=== PATIENT | female | born 1940 | race Caucasian/White ===

== ENCOUNTER 2017-03-20 17:31 | Inpatient (IN) | payer OTHER ==
[~2017-03-20] VITALS: Ht 167.6 cm; Wt 69.9 kg
[2017-03-20] MEDS ORDERED: Cefepime HCl 1 GM in NS 55 ML IV STA (17:57)
[2017-03-20 18:00] VITALS: BP 128/72
[2017-03-20] MEDS ORDERED: Cefepime 1gm vial ONE (18:01)
[2017-03-20 18:22] LABS: MEAN CORPUSCULAR HEMOGLOBIN 34.2 PG (27.0-31.0); MEAN CORPUSCULAR HGB CONC 36.6 G/DL (32.0-36.0); MEAN CORPUSCULAR VOLUME 93 FL (80-99); MEAN PLATELET VOLUME 6.1 FL (6.5-10.1); PLATELET COUNT 244 K/UL (150-450); RED CELL DISTRIBUTION WIDTH 12.2 % (11.6-14.8); WHITE BLOOD COUNT 17.5 K/UL (4.8-10.8)
[2017-03-20 18:25] LABS: BASOPHILS % (AUTO) 0.2 % (0.0-2.0); EOSINOPHILS % (AUTO) 0.8 % (0.0-3.0); LYMPHOCYTES % (AUTO) 1.4 % (20.0-45.0); MONOCYTES % (AUTO) 2.9 % (1.0-10.0); NEUTROPHILS % (AUTO) 94.7 % (45.0-75.0)
[2017-03-20 18:33] LABS: REFLEX LACTIC ACID YES OR NO YES
[2017-03-20 18:34] LABS: TROPONIN I < 0.30 ng/mL (<=0.30)
[2017-03-20 18:35] LABS: ALANINE AMINOTRANSFERASE 27 U/L (3-33); ALBUMIN/GLOBULIN RATIO 1.1 (1.0-2.7); ANION GAP 16 (5-15); ASPARTATE AMINO TRANSFERASE 41 U/L (5-40); CALCIUM 8.8 mg/dL (8.6-10.2); CARBON DIOXIDE 21 mEQ/L (20-30); CHLORIDE 95 mEQ/L (98-107); CREATININE 0.9 mg/dL (0.5-0.9); HEMOLYSIS 4; POTASSIUM 3.7 mEQ/L (3.4-4.9); SODIUM 132 mEQ/L (135-145); TOTAL PROTEIN 6.3 g/dL (6.6-8.7)
[2017-03-20 18:46] LABS: CKMB < 1.5 ng/mL (< 3.8)
[2017-03-20 18:56] LABS: APPEARANCE,URINE SLIGHTLY CLOUDY; KETONES,URINE 2+ (NEGATIVE); LEUKOCYTE ESTERASE ,URINE 3+ (NEGATIVE); NITRITE,URINE NEGATIVE (NEGATIVE); PH,URINE 5 (4.5-8.0); PROTEIN,URINE 1+ (NEGATIVE); UROBILINOGEN,URINE NORMAL MG/DL (0.0-1.0)
[2017-03-20 19:00] VITALS: BP 95/42
[2017-03-20 19:06] LABS: WBC,URINE 20-30 /HPF (0 - 2)
[2017-03-20 19:07] LABS: AMORPHOUS SEDIMENT,UR MODERATE /LPF; BACTERIA,URINE OCCASIONAL /HPF; SQUAMOUS EPITHELIAL CELL,UR OCCASIONAL /LPF (NONE/OCC)
[2017-03-20] MEDS ORDERED: POLYETHYLENE GL17 GM ORAL (19:42)
[2017-03-20] MEDS ORDERED: SINEMET 25-1001 EAC1 ORAL (19:42)
[2017-03-20] MEDS ORDERED: MOM30 ML ORAL (19:42)
[2017-03-20] MEDS ORDERED: BREO ELLIPTA 11 EACH IH (19:42)
[2017-03-20] MEDS ORDERED: IPRATROPIU0.2 MG/1 M HHN (19:42)
[2017-03-20] MEDS ORDERED: LORAZEPAM0.5 GM MC (19:42)
[2017-03-20] MEDS ORDERED: MELADOX3 MG PO (19:42)
[2017-03-20] MEDS ORDERED: ALENDRONATE SOD70 MG ORAL (19:42)
[2017-03-20] MEDS ORDERED: FOLGARD TABLET1 EAC1 PO (19:42)
[2017-03-20] MEDS ORDERED: MULTIVITAMINS1 EAC2 ORAL (19:42)
[2017-03-20] MEDS ORDERED: TRAZODONE HCL50 MG ORAL (19:42)
[2017-03-20] MEDS ORDERED: ARICEPT10 MG ORAL (19:42)
[2017-03-20] MEDS ORDERED: ASPIR 8181 MG ORAL (19:42)
[2017-03-20] MEDS ORDERED: CLOZAPINE25 MG PO (19:42)
[2017-03-20] MEDS ORDERED: BISACODYL10 M1 RC (19:42)
[2017-03-20] MEDS ORDERED: LYSINE500 MG PO (19:42)
[2017-03-20] MEDS ORDERED: TYLENOL650 MG/20. ORAL (19:42)
[2017-03-20] MEDS ORDERED: MIRTAZAPINE30 M1 ORAL (19:42)
[2017-03-20] MEDS ORDERED: GUIATUSS AC SY120 ML ORAL (19:42)
[2017-03-20] MEDS ORDERED: PROAIR HFA8.5 GM INH (19:42)
[2017-03-20] MEDS ORDERED: COLACE100 MG ORAL (19:42)
[2017-03-20] MEDS ORDERED: VENLAFAXINE HCL25 MG ORAL (19:42)
[2017-03-20 20:00] VITALS: BP 98/46
--- NOTE | 2017-03-20 20:04 | Emergency Room Report ---
History of Present Illness General Chief Complaint: Dyspnea/Respdistress Source: Patient, Medical Record Present Illness HPI [id number] BIBEMS for SOB, desat at SNF Recent hospitalization/admission for PNA Parkinsons history history of CHF Allergies: Coded Allergies: BANANA (Verified Allergy, Severe, Shortness of Breath, 03/20/17) TREE NUT (Verified Allergy, Severe, Shortness of Breath, 03/20/17) ZOSTER VACCINE LIVE (Verified Allergy, Severe, Rash, 03/20/17) CARBIDOPA (Verified Allergy, Unknown, 03/20/17) LATEX (Verified Allergy, Unknown, 03/20/17) LEVODOPA (Verified Allergy, Unknown, 03/20/17) Uncoded Allergies: FOOD DYE (Allergy, Unknown, 03/20/17) Patient History Past Medical History: CHF, other - Parkinsons Past Surgical History: none Pertinent Family History: none Social History: Denies: alcohol use, drug use, smoking Last Menstrual Period: na Now: No Immunizations: UTD Reviewed Nursing Documentation: PMH: Agreed, PSxH: Agreed Nursing Documentation-PMH Past Medical History: No History, Except For Hx Cardiac Problems: Yes - CHF, HIGH CHOLESTEROL Hx Asthma: Yes Hx Cancer: Yes - BASAL CELL History Of Psychiatric Problem: Yes - DEPRESSION, DEMENTIA Hx Neurological Problems: Yes - parkinsons Physical Exam Vital Signs Date Time Temp Pulse Resp B/P Pulse Ox O2 Delivery O2 Flow Rate FiO2 03/20/17 17:29 102.0 92 28 128/72 98 Non-Rebreather 15.0 Medical Decision Making Medicare Attestation REASON FOR ADMISSION: 53-year-old male, resident of subacute facility with a history of ventilator-dependent respiratory failure, tracheostomy, dysphagia, G-tube, hypertension, diabetes, anemia, hyperlipidemia, chronic obstructive pulmonary disease, history of intracranial bleeding, [employer] shunt, and encephalopathy, was treated in the subacute facility for pneumonia with antibiotics, pulmonary toilet, and frequent suctioning. However, the patient developed tachycardia, low-grade fever, and malaise, and was transferred to [facility] for evaluation. ABG revealed evidence of acute respiratory acidosis with hypercapnia. PCO2 -63.4 and pH- 7.26, on the AC rate of 10. AC rate was increased to 14. Chest x-ray revealed bilateral pneumonia. EKG revealed no acute ischemic changes, sinus rhythm. Hemoglobin -7.5. Potassium -5.2 and creatinine- 1.4. Troponin was negative. Lactic acid was within normal limits. The patient was started on the IV fluids. Kayexalate was given for hyperkalemia. Blood pressure was stable. Venous Doppler was done due to the left upper extremity swelling, which revealed no evidence of DVT. Patient was started on empiric antibiotics and admitted to the hospital for further management. ADMITTING DIAGNOSES: 1. Acute on chronic respiratory failure. 2. Possible sepsis 3. Pneumonia 4. Anemia 5. VDRF, tracheostomy status 6. Dysphagia, Status post percutaneous endoscopic gastrostomy. 7. Acute renal failure. HOSPITAL COURSE: The patient was admitted to [facility]. The patient was initially on the IV fluids and diuretics. Nephrology, ID and GI consults were requested. Next day, hemoglobin dropped to 6.9 and hematocrit 20.6. The patient undergone total of 3 units of packed red blood transfusion during the admission. Prior to discharge, hemoglobin - 9.3 and hematocrit - 27.8. No leukocytosis. Anemia workup revealed iron deficiency anemia. The patient was on Venofer. Electrolytes were replaced as needed. The patient was started on PPI. I Jose Alfredo Cottrell MD hereby attest that the medical record entry for date of service, 03/20/17 accurately reflects signatures/notations that I made in my capacity as MD when I treated/diagnosed the above listed Medicare beneficiary. I attest that this information is true, accurate and complete to the best of my knowledge. I understand that any falsification, omission, or concealment of material fact may subject me to administrative, civil, or criminal liability. This patient warrants hospital admission for extreme of age and has a condition that cannot be treated as outpatient. Diagnostic Impression: Primary Impression: Dyspnea Qualified Codes: R06.00 - Dyspnea, unspecified Additional Impression: UTI (urinary tract infection) Qualified Codes: N30.01 - Acute cystitis with hematuria ER Course VSS. Afebrile UA infected Leukocytosis Downtrending lactate with Abx IVF given Tylenol given Tele admit to Dr Curiel covering for Dr Fierro EKG Diagnostic Results Rate: other - EKG shows Afib with RVR because of Parkinsons tremor. NSR on monitor. No history of Atrial Fib Rhythm Strip Diag. Results EP Interpretation: yes Rate: 73 Rhythm: NSR, no PVC's, no ectopy Chest X-Ray Diagnostic Results Chest X-Ray Diagnostic Results : Chest X-Ray Ordered: Yes # of Views/Limited/Complete: 1 View Indication: Other - SOB EP Interpretation: Yes Interpretation: no consolidation, no effusion, no pneumothorax, no acute cardiopulmonary disease Impression: No acute disease Interpreting ER Provider: Electronically signed by Dr Cottrell Last Vital Signs Date Time Temp Pulse Resp B/P Pulse Ox O2 Delivery O2 Flow Rate FiO2 03/20/17 19:09 101.9 03/20/17 19:00 90 18 95/42 96 Nasal Cannula 4.0 Status: improved Disposition: ADMITTED INPATIENT Condition: Serious JOSE ALFREDO COTTRELL M.D. Mar 20, 2017 20:04
[2017-03-20 21:00] VITALS: BP 109/76
[2017-03-20] MEDS ORDERED: Albuterol ud Inhalation HHN PRN (21:45)
[2017-03-20] MEDS ORDERED: guaiFENesin DM 100mg/5ml ORAL PRN (21:45)
[2017-03-20] MEDS ORDERED: Milk of Magnesia 30ml Ud ORAL PRN (21:45)
[2017-03-20 22:00] VITALS: BP 124/72
[2017-03-20] MEDS ORDERED: Piperacillin/Tazobactam 3.375 GM in NS 110 ML IVPB SCH (22:00)
[2017-03-20 23:00] VITALS: BP 118/78
[2017-03-21 00:15] VITALS: BP 112/41
[2017-03-21] MEDS: traMADol 50mg tab ORAL PRN ×2 (01:35→21:04)
[2017-03-21] MEDS ORDERED: Zosyn 4.5gm inj ONE (03:16)
[2017-03-21] MEDS: Zosyn 4.5gm q8h **Extended infusion IVPB SCH ×6 (03:22→21:01)
[2017-03-21 03:38] VITALS: BP 112/56
[2017-03-21 08:39] VITALS: BP 110/49
[2017-03-21] MEDS: Docusate 100mg cap ORAL SCH ×2 (08:55→21:04)
[2017-03-21] MEDS: Heparin 5000 units/ml inj SUBQ SCH ×2 (08:58→21:13)
[2017-03-21] MEDS: Ipratropium 0.02% Inh Soln 2.5ml UD HHN SCH ×4 (08:58→19:59)
--- NOTE | 2017-03-21 10:28 | Diagnostic Imaging Report ---
Indication: SOB Technique: One view of the chest Comparison: none Findings: Lungs and pleural spaces are clear. Heart size is normal. Impression: No acute process
[2017-03-21 12:00] VITALS: BP 99/47
[2017-03-21 15:45] VITALS: BP 105/55
[2017-03-21 20:00] VITALS: BP 108/55
--- NOTE | 2017-03-21 23:45 | History and Physical Report ---
DATE OF ADMISSION: 03/20/2017 CHIEF COMPLAINT: Sepsis. HISTORY OF PRESENT ILLNESS: The patient is a 77-year-old woman, who was admitted through the emergency department by paramedics from a custodial because of fever and shortness of breath. She was evaluated and found to have sepsis with elevated lactate level. She improved with hydration and antibiotics were given. The chest x-ray was clear. Urinalysis was positive for urinary infection. She had recently been treated for urinary infection and for pneumonia. She has had some recent dysuria. She was most recently on ceftriaxone for the past few days without improvement. PAST MEDICAL HISTORY: Parkinson disease, asthma, dysphagia, chronic systolic CHF, hyperlipidemia, major depressive disorder, anxiety, insomnia, and dementia. Code status is DNR. ALLERGIES: Carbidopa, latex, levodopa, zoster vaccine, banana, food dye, and tree nuts. Diet is nectar-thick liquids and soft diet. REVIEW OF SYSTEMS: The patient is not ambulatory. She does not drink or use cigarettes. She has no chest pain or shortness of breath at this time. She has no nausea, vomiting, or diarrhea. She has no ankle swelling. She does have joint pain. PHYSICAL EXAMINATION: VITAL SIGNS: Showed temperature was 102.9 and tachycardia was noted with a rate of 119 per minute. Those vital signs have improved today and she is in no distress. HEENT: The head is normocephalic. She has a gross Parkinson's tremor. NECK: Has no jugular venous distention. CHEST: Clear without wheezing or rales. CARDIAC: Rhythm is regular. ABDOMEN: Soft and nontender. Liver and spleen not enlarged. BACK: There is no CVA tenderness. EXTREMITIES: No clubbing, cyanosis, or edema. There is no catheter in place. LABORATORY STUDIES: Showed the white count is 17,500 and hemoglobin is 12.3. Sodium 132. Glucose 175. Lactic acid is 4.5 and improved to 2.6 on repeat. Natriuretic peptide 1220. Troponin negative. Urinalysis shows 20 to 30 white cells. IMPRESSION: 1. Sepsis. 2. Urinary tract infection causing sepsis. 3. Parkinson disease. 4. Asthma. 5. Mild dementia. 6. Anxiety. 7. Depression. 8. Hyperlipidemia. 9. Congestive heart failure. 10. Dysphagia. PLAN: The patient will be treated with appropriate antibiotic therapy and fluids. There is no clinical sign of CHF at this time. Cultures were obtained and antibiotics will be adjusted. I discussed her care with the family. Ricardo Fierro M.D. DR: AYLIN JOB#: [id number] CC:
[2017-03-22] VITALS (7 sets, daily range): BP systolic 105–141; BP diastolic 48–85
[2017-03-22] MEDS: Zosyn 4.5gm q8h **Extended infusion IVPB SCH ×6 (03:00→18:35)
[2017-03-22] MEDS: Ipratropium 0.02% Inh Soln 2.5ml UD HHN SCH ×2 (06:51→18:00)
[2017-03-22 07:06] LABS: BASOPHILS % (AUTO) 0.2 % (0.0-2.0); EOSINOPHILS % (AUTO) 5.7 % (0.0-3.0); LYMPHOCYTES % (AUTO) 9.2 % (20.0-45.0); MEAN CORPUSCULAR HEMOGLOBIN 31.8 PG (27.0-31.0); MEAN CORPUSCULAR HGB CONC 33.2 G/DL (32.0-36.0); MEAN CORPUSCULAR VOLUME 96 FL (80-99); MEAN PLATELET VOLUME 6.2 FL (6.5-10.1); MONOCYTES % (AUTO) 4.5 % (1.0-10.0); NEUTROPHILS % (AUTO) 80.3 % (45.0-75.0); PLATELET COUNT 247 K/UL (150-450); RED BLOOD COUNT 3.64 M/UL (4.20-5.40); RED CELL DISTRIBUTION WIDTH 12.6 % (11.6-14.8); WHITE BLOOD COUNT 8.5 K/UL (4.8-10.8)
[2017-03-22 07:21] LABS: ALANINE AMINOTRANSFERASE 44 U/L (3-33); ALBUMIN/GLOBULIN RATIO 0.8 (1.0-2.7); ANION GAP 10 (5-15); ASPARTATE AMINO TRANSFERASE 45 U/L (5-40); CALCIUM 8.6 mg/dL (8.6-10.2); CARBON DIOXIDE 28 mEQ/L (20-30); CHLORIDE 99 mEQ/L (98-107); CREATININE 0.8 mg/dL (0.5-0.9); HEMOLYSIS 7; POTASSIUM 3.6 mEQ/L (3.4-4.9); SODIUM 137 mEQ/L (135-145); TOTAL PROTEIN 5.9 g/dL (6.6-8.7)
[2017-03-22] MEDS: Docusate 100mg cap ORAL SCH ×2 (08:23→20:25)
[2017-03-22] MEDS: Heparin 5000 units/ml inj SUBQ SCH ×2 (08:25→20:27)
--- NOTE | 2017-03-22 17:39 | General Progress Note ---
Assessment/Plan Status: doing well Assessment/Plan 1. Sepsis. 2. Urinary tract infection causing sepsis. 3. Parkinson disease. 4. Asthma. 5. Mild dementia. 6. Anxiety. 7. Depression. 8. Hyperlipidemia. 9. Congestive heart failure. 10. Dysphagia. WBC normal no fever cultures neg cont rx early dc, possible tomorrow dosc w RN, dtr Subjective Constitutional: Denies: fever Allergies: Coded Allergies: BANANA (Verified Allergy, Severe, Shortness of Breath, 03/20/17) TREE NUT (Verified Allergy, Severe, Shortness of Breath, 03/20/17) ZOSTER VACCINE LIVE (Verified Allergy, Severe, Rash, 03/20/17) CARBIDOPA (Verified Allergy, Unknown, 03/20/17) LATEX (Verified Allergy, Unknown, 03/20/17) LEVODOPA (Verified Allergy, Unknown, 03/20/17) Uncoded Allergies: FOOD DYE (Allergy, Unknown, 03/20/17) Subjective anxious Objective Last 24 Hour Vital Signs Date Time Temp Pulse Resp B/P Pulse Ox O2 Delivery O2 Flow Rate FiO2 03/22/17 13:50 Room Air 03/22/17 13:50 Room Air 03/22/17 11:54 98.6 110 21 105/60 97 Nasal Cannula 2.0 03/22/17 08:00 97.3 80 18 120/63 99 Nasal Cannula 2.0 03/22/17 06:55 Nasal Cannula 3.0 32 03/22/17 06:55 99 Nasal Cannula 3.0 32 03/22/17 06:53 73 18 Nasal Cannula 3.0 32 03/22/17 06:40 75 16 100 Nasal Cannula 3.0 32 03/22/17 06:35 73 16 99 Nasal Cannula 3.0 32 03/22/17 04:00 97.1 71 20 112/48 98 Nasal Cannula 2.0 03/22/17 00:00 97.3 68 20 123/85 98 Nasal Cannula 2.0 03/21/17 20:32 89 16 98 Nasal Cannula 3.0 03/21/17 20:00 76 16 96 Nasal Cannula 3.0 03/21/17 20:00 97.6 78 20 108/55 96 Nasal Cannula 2.0 Intake and Output 03/21/17 03/22/17 19:00 07:00 Intake Total 240 ml 320.0 ml Balance 240 ml 320.0 ml Intake Oral 240 ml 100 ml IV Total 220.0 ml # Voids 3 2 # Bowel Movements 1 Laboratory Tests 03/22/17 04:35: White Blood Count 8.5#, Red Blood Count 3.64L, Hemoglobin 11.6L, Hematocrit 34.8L, Mean Corpuscular Volume 96, Mean Corpuscular Hemoglobin 31.8H, Mean Corpuscular Hemoglobin Concent 33.2, Red Cell Distribution Width 12.6, Platelet Count 247, Mean Platelet Volume 6.2L, Neutrophils (%) (Auto) 80.3H, Lymphocytes (%) (Auto) 9.2L, Monocytes (%) (Auto) 4.5, Eosinophils (%) (Auto) 5.7H, Basophils (%) (Auto) 0.2, Sodium Level 137, Potassium Level 3.6, Chloride Level 99, Carbon Dioxide Level 28, Anion Gap 10, Blood Urea Nitrogen 17, Creatinine 0.8, Estimat Glomerular Filtration Rate , Glucose Level 98, Calcium Level 8.6, Total Bilirubin 0.3, Aspartate Amino Transf (AST/SGOT) 45H, Alanine Aminotransferase (ALT/SGPT) 44H, Alkaline Phosphatase 86, Total Protein 5.9L, Albumin 2.7L, Globulin 3.2, Albumin/Globulin Ratio 0.8L Height (Feet): 5 Height (Inches): 6.00 Weight (Pounds): 155 General Appearance: no apparent distress Neck: supple Cardiovascular: normal rate Respiratory/Chest: lungs clear Abdomen: non tender, soft Neurologic: other - tremor JOSE ALFREDO MOORE Mar 22, 2017 17:39
[2017-03-23] VITALS: BP 118/62
[2017-03-23] MEDS: Zosyn 4.5gm q8h **Extended infusion IVPB SCH ×6 (02:58→19:21)
[2017-03-23 04:00] VITALS: BP 107/61
[2017-03-23 07:25] LABS: ALANINE AMINOTRANSFERASE 50 U/L (3-33); ALBUMIN/GLOBULIN RATIO 1.1 (1.0-2.7); ANION GAP 12 (5-15); ASPARTATE AMINO TRANSFERASE 53 U/L (5-40); CARBON DIOXIDE 28 mEQ/L (20-30); CHLORIDE 103 mEQ/L (98-107); CREATININE 0.9 mg/dL (0.5-0.9); HEMOLYSIS 2; SODIUM 143 mEQ/L (135-145); TOTAL PROTEIN 6.2 g/dL (6.6-8.7)
[2017-03-23 07:28] LABS: BASOPHILS % (AUTO) 0.8 % (0.0-2.0); EOSINOPHILS % (AUTO) 9.8 % (0.0-3.0); MEAN CORPUSCULAR HEMOGLOBIN 31.3 PG (27.0-31.0); MEAN CORPUSCULAR HGB CONC 32.9 G/DL (32.0-36.0); MEAN CORPUSCULAR VOLUME 95 FL (80-99); MEAN PLATELET VOLUME 6.3 FL (6.5-10.1); MONOCYTES % (AUTO) 7.1 % (1.0-10.0); NEUTROPHILS % (AUTO) 62.3 % (45.0-75.0); PLATELET COUNT 309 K/UL (150-450); RED BLOOD COUNT 3.68 M/UL (4.20-5.40); RED CELL DISTRIBUTION WIDTH 12.5 % (11.6-14.8); WHITE BLOOD COUNT 5.7 K/UL (4.8-10.8)
[2017-03-23 07:44] VITALS: BP 118/71
[2017-03-23] MEDS: Ipratropium 0.02% Inh Soln 2.5ml UD HHN SCH ×3 (08:35→20:08)
[2017-03-23] MEDS: Docusate 100mg cap ORAL SCH ×2 (08:37→21:00)
[2017-03-23] MEDS: Heparin 5000 units/ml inj SUBQ SCH ×2 (08:41→21:00)
[2017-03-23 11:33] VITALS: BP 142/73
[2017-03-23 16:00] VITALS: BP 126/71
[2017-03-23] MEDS ORDERED: ZOSYN 3.373.375 GM/1 IVPB (16:27)
--- NOTE | 2017-03-23 16:30 | Discharge Summary ---
Discharge Summary Hospital Course Date of Admission Mar 20, 2017 at 20:25 Date of Discharge 03/23/17 Admitting Diagnosis SHORTNESS OF BREATH HPI Bridgett Underwood is a 77 year old female who was admitted on Mar 20, 2017 at 20:25 for Shortness Of Breath Consultations none Procedures no Hospital Course UTI with sepsis found. UA 20-30 WBC but c/s neg. Responded to Zosyn. DC to snf. Discharge Medications New Medications: Uazxfzzbubta-Gykm-Kgmtzoub,Iso (Zosyn 3.375 Gm Pre Mix-Bag) 3.375 Gm/50 Ml Froz.piggy 3.375 GM IVPB EVERY 8 HOURS, #12 BAG Continued Medications: Acetaminophen (Acetaminophen) 650 Mg/20.3 Ml Solution 650 MG ORAL Q6H PRN for Prn Headache/Temp > 101, ML 0 Refills Albuterol Sulfate* (Proair Hfa*) 8.5 Gm Hfa.aer.ad 2 PUFFS INH Q6H, #8.5 GM 0 Refills Alendronate Sodium* (Fosamax*) 70 Mg Tablet 70 MG ORAL ONCE A WEEK, TAB Take with 6-8 oz water at least 30 minutes before first food; Sit upright for at least 30min after medication administration Aspirin* (Aspir 81*) 81 Mg Tablet.dr 81 MG ORAL DAILY, TAB Bisacodyl (Bisacodyl) 10 Mg Supp.rect 10 MG RC, SUPP Carbidopa/Levodopa 25-100 Mg* (Sinemet 25-100 Mg Tablet*) 1 Each Tablet 0.5 TAB ORAL THREE TIMES A DAY, TAB Clozapine (Clozapine) 25 Mg Tablet 25 MG PO BEDTIME, TAB Docusate Sodium* (Colace*) 100 Mg Capsule 100 MG ORAL DAILY, CAP Donepezil Hcl* (Aricept*) 10 Mg Tablet 10 MG ORAL BEDTIME, TAB Fluticasone/Vilanterol (Breo Ellipta 100-25 Mcg INH) 1 Each Blst.w.dev 1 EACH IH DAILY, EACH Guaifenesin/Codeine Phosphate (Guaifen-Codeine 100-10 mg/5 ml) 118 Ml Liquid 5 ML ORAL Q6H, #120 ML 0 Refills Ipratropium [place] 0.5MG/2.5ML (Ipratropium [place] 0.5MG/2.5ML) 0.2 Mg/1 Ml Solution 0.5 MG HHN Q6H PRN for Shortness of Breath, #28 EA Lorazepam (Lorazepam) 0.5 Gm Powder 0.5 GM MC Q6HR, GM Lysine (Lysine) 500 Mg Tablet 500 MG PO DAILY, TAB Magnesium Hydroxide (Milk of Magnesia) 400 Mg/5 Ml Oral.susp 30 ML ORAL DAILY, ML Melatonin (Meladox) 3 Mg Tablet.er 3 MG PO BEDTIME, TAB Mirtazapine (Mirtazapine) 30 Mg Tab.rapdis 30 MG ORAL BEDTIME, TAB Multivitamins* (Multivitamins*) 1 Each Tablet 1 TAB ORAL DAILY, TAB 0 Refills Polyethylene Glycol 3350* (Polyethylene Glycol 3350*) 17 Gm Powd.pack 17 GM ORAL DAILY, PACKET Trazodone Hcl* (Desyrel*) 50 Mg Tablet 50 MG ORAL BEDTIME, TAB Venlafaxine Hcl* (Effexor*) 25 Mg Tablet 150 MG ORAL DAILY, TAB Vit D3/Folic Acid/B2/B6/B12 (Folgard Tablet) 1 Each Tablet 1 EACH PO DAILY, TAB Discharge Condition Upon Discharge: improving Discharge Disposition Patient was discharged to snf Discharge Diagnoses: (1) Sepsis secondary to UTI (2) UTI (urinary tract infection) JOSE ALFREDO MOORE Mar 23, 2017 16:30
[2017-03-23 20:00] VITALS: BP 113/71
[2017-03-23] MEDS ORDERED: NS 275ml ONE (21:59)
[2017-03-23] MEDS ORDERED: Tubing IV Secondary IV ONE (21:59)
== END 2017-03-23 22:00 | DRG 871 ==
LOC: EDBD 17:31 → EMR 18:03 → 4W 20:25 → EDBEDREQ 21:53 → 4E 03-21 10:19
DX: A41.9 Sepsis, unspecified organism (principal); J18.9 Pneumonia, unspecified organism; J96.22 Acute and chronic respiratory failure with hypercapnia; N17.9 Acute kidney failure, unspecified; Z99.11 Dependence on respirator [ventilator] status; Z93.0 Tracheostomy status; E87.5 Hyperkalemia; R13.10 Dysphagia, unspecified; I50.22 Chronic systolic (congestive) heart failure; G20 Parkinson's disease; E11.9 Type 2 diabetes mellitus without complications; E78.5 Hyperlipidemia, unspecified; D50.9 Iron deficiency anemia, unspecified; F02.80 Dementia in other diseases classified elsewhere, unspecified severity, without behavioral disturbance, psychotic disturbance, mood disturbance, and anxiety; F32.9 Major depressive disorder, single episode, unspecified; F41.9 Anxiety disorder, unspecified; Z66 Do not resuscitate; Z93.1 Gastrostomy status; Z91.040 Latex allergy status
CPT/HCPCS: 36415; 71010; 80053; 81003; 82550; 82553; 83605; 83880; 84484; 85025; 87040; 87081; 87086; 93005; 94640; 94664; 94760; J8499